=== PATIENT | male | born 1985 | race Caucasian/White ===

== ENCOUNTER 2016-12-16 07:23 | Emergency (ER) | payer BC ==
[~2016-12-16] VITALS: Ht 180.3 cm; Wt 102.3 kg
[~2016-12-16 07:23] MED LIST: FISH OIL500 M1 PO
[2016-12-16] MEDS ORDERED: NORCO 325 MG-51 TA1 PO (08:25)
[2016-12-16] MEDS ORDERED: CYCLOBENZ5 MG PO (08:25)
[2016-12-16 08:46] VITALS: BP 128/85
== END 2016-12-16 08:45 | disposition home or self-care (01) ==
LOC: ED 07:23
DX: S33.5XXA Sprain of ligaments of lumbar spine, initial encounter (principal); X50.1XXA Overexertion from prolonged static or awkward postures, initial encounter
CPT/HCPCS: J1885; J2930